=== PATIENT | female | born 1985 ===

== ENCOUNTER 2016-08-17 07:56 | Emergency (ER) | payer OTHER ==
[2016-08-17 08:22] VITALS: BP 113/72; PULSE 82; RESP 16; TEMP 98; O2SAT 98
--- NOTE | 2016-08-17 08:47 | ED PDOC ---
Arrival/HPI - General Chief Complaint: Abnormal Skin Integrity Time Seen by Provider: 08/17/16 08:46 Historian: Patient, Spouse - History of Present Illness Narrative History of Present Illness (Text): 08/17/16 08:48 31 year old female who denies past medical history, presents to the emergency department complaining of itchy isolated bumps that started two days ago. Patient states bumps are localized on her back, chest, legs, and forehead, but not seen on her hands or palms. Patient's spouse claims that nobody else at home is experiencing similar bumps. Patient denies using any new body lotions, no other complaints at this time. Denies fever, cough, uri symptoms, chest pain , shortness of breath, neck pain. PMD: None Time/Duration: < week Symptom Onset: Gradual Symptom Course: Unchanged Modifying Factors (Text): none Associated Symptoms (Text): none Past Medical History - Provider Review Nursing Documentation Reviewed: Yes - Infectious Disease Hx of Infectious Diseases: None - Reproductive Menopause: No - Psychiatric Hx Substance Use: No - Anesthesia Hx Anesthesia: No Family/Social History - Physician Review Nursing Documentation Reviewed: Yes Family/Social History: Unknown Family HX Smoking Status: Unknown If Ever Smoked Hx Alcohol Use: No Hx Substance Use: No Allergies/Home Meds Allergies/Adverse Reactions: Allergies pollen extracts Allergy (Verified 08/17/16 08:22) CONGESTION Review of Systems - Review of Systems Respiratory: absent: SOB, Cough Cardiovascular: absent: Chest Pain Gastrointestinal: absent: Abdominal Pain Skin: Rash Neurological: absent: Dizziness Physical Exam Vital Signs Reviewed: Yes Vital Signs Temp Pulse Resp BP Pulse Ox 08/17/16 08:18 98 F 82 16 113/72 98 Temperature: Afebrile Blood Pressure: Normal Pulse: Regular Respiratory Rate: Normal Appearance: Positive for: Well-Appearing, Non-Toxic, Comfortable Pain Distress: None Mental Status: Positive for: Alert and Oriented X 3 - Systems Exam Head: Present: Atraumatic, Normocephalic Pupils: Present: PERRL Extroacular Muscles: Present: EOMI Conjunctiva: Present: Normal Mouth: Present: Moist Mucous Membranes Neck: Present: Normal Range of Motion Respiratory/Chest: Present: Clear to Auscultation, Good Air Exchange. No: Respiratory Distress, Accessory Muscle Use Upper Extremity: No: Cyanosis, Edema Lower Extremity: No: Edema Neurological: Present: GCS=15, CN II-XII Intact, Speech Normal Skin: Present: Rashes (isolated bumps which appear similar to insect bites on back, chest, arms, legs, and forehead. But not found on palms or hands or interweb spaces with area of excoriations ) Psychiatric: Present: Alert, Oriented x 3, Normal Insight, Normal Concentration Medical Decision Making ED Course and Treatment: Impression: 31 year old female reports to emergency department complaining of isolated itchy bumps on her legs, arms, back, and chest that started 2 days ago. Consistent with insect bites. Spoke to patient and patient's about possibility of bed bugs and need to check mattress. Advised benadryl for symptomatic relief. Advised to avoid new lotions, creams or detergents Differential Diagnosis included but are not limited to: insect bites Plan: -- Benadryl for itching -- Discharged and followup with clinic Progress Notes: I instructed the patient to take Benadryl as needed, and to follow up with a clinic for further evaluation, or return to er if symptoms worsen. Spouse translated instructions for patient. Patient agrees with the plan. Patient is stable for discharge. All questions answered. 08/17/16 12:13 - Medication Orders Current Medication Orders: Discontinued Medications Diphenhydramine HCl (Benadryl) 50 mg PO STAT STA Stop: 08/17/16 08:47 Last Admin: 08/17/16 09:06 Dose: 50 MG - Scribe Statement The provider has reviewed the documentation as recorded by the Luciano Almeida, training with Bharath Jarvis. All medical record entries made by the Luciano were at my direction and personally dictated by me. I have reviewed the chart and agree that the record accurately reflects my personal performance of the history, physical exam, medical decision making, and the department course for this patient. I have also personally directed, reviewed, and agree with the discharge instructions and disposition. Disposition/Present on Arrival - Present on Arrival Any Indicators Present on Arrival: No History of DVT/PE: No History of Uncontrolled Diabetes: No Urinary Catheter: No History of Decub. Ulcer: No History Surgical Site Infection Following: None - Disposition Have Diagnosis and Disposition been Completed?: Yes Diagnosis: Rash Disposition: HOME/ ROUTINE Disposition Time: 08:47 Patient Plan: Discharge Condition: GOOD Discharge Instructions (ExitCare): Acute Rash (ED), Bed Bugs (ED) Print Language: KOREAN Additional Instructions: Your rash looks more consistent with insect bites. Check all bedding. Discontinue use of any new lotions or detergents. Use benadryl for the itching. Return to ED with any new symptoms. Follow-up with [facility]/ dermatology. Prescriptions: DiphenhydrAMINE [Benadryl] 25 mg PO Q6 #30 cap Referrals: [facility] at [facility] [Outside] - Follow up with primary
== END 2016-08-17 09:36 | disposition home or self-care (01) ==
LOC: ED 07:56
DX: R21 Rash and other nonspecific skin eruption (principal)